=== PATIENT | male | born 1945 | race African-American/Black ===

== ENCOUNTER 2019-01-04 17:59 | Emergency (ER) | payer OTHER ==
[~2019-01-04] VITALS: Ht 165.1 cm; Wt 74.8 kg
[2019-01-04 18:17] LABS: HEMATOCRIT 30.6 % (42.0-52.0); HEMOGLOBIN 9.4 gm/dL (14.0-18.0); MCH 20.1 pg (26.0-34.0); MCHC 30.7 g/dL (28.0-37.0); MCV 65.3 fL (80.0-100.0); RBC 4.68 mil/uL (4.50-6.00); RDW 19.8 % (10.5-14.5); WBC 4.1 thou/uL (4.0-11.0)
[2019-01-04 18:25] LABS: ANION GAP 12 mmol/L (7-16); BUN 15 mg/dL (7-18); CALCIUM 8.7 mg/dL (8.5-10.1); CHLORIDE 107 mmol/L (98-107); CO2 20 mmol/L (21-32); CREATININE 1.6 mg/dL (0.7-1.3); GLUCOSE 131 mg/dL (74-106); POTASSIUM 3.6 mmol/L (3.5-5.1); SODIUM 139 mmol/L (136-145)
[2019-01-04 18:34] LABS: TROPONIN-I <0.06 ng/mL (<0.06)
[2019-01-04 20:25] VITALS: BP 127/66
--- NOTE | 2019-01-05 09:33 | EKG ---
[address] [address] ELECTROCARDIOGRAM REPORT Name: ELIJAH STEELE Room #: DEP Nicho#: [id number] ������������������ Admission: 01/04/19 ������������������ Attend Phys: Discharge: 01/04/19 ������������������ Date of : 43 Report #: [id number] ����������������������������������������������������������������� [id number] THIS REPORT FOR: //name// [facility] ED Test Date: 2019-01-04 Test Time: 18:24:00 Pat Name: ELIJAH STEELE Department: Room: Gender: M [employer]rentice: [id number] : 1945 Requested By: Elijah Lindquist Order Number: [id number] MD: Lj Kay Measurements Intervals [place] Rate: 48 P: 66 AK: 227 QRS: 33 QRSD: 105 T: 43 QT: 506 QTc: 453 Interpretive Statements Sinus bradycardia Borderline prolonged [place] interval Probable left atrial enlargement Nonspecific T abnormalities, anterior leads No previous ECG available for comparison Electronically Signed On 01-05-2019 9:33:39 CDT by Lj Kay [email or web address] ��������������������������������������������� <ELECTRONICALLY SIGNED> ���������������������������������������� By: Lj Kay MD ��������������������������������������������� 01/05/19 0933 1824 1824 jL Kay MD /YVONNE
== END 2019-01-04 20:27 | disposition home or self-care (01) ==
LOC: ER 17:59 → EDBD 17:59 → ER 20:27
PROVIDERS: Emergency Medicine
DX: R55 Syncope and collapse (principal); R11.2 Nausea with vomiting, unspecified